=== PATIENT | female | born 1990 | race Caucasian/White ===

== ENCOUNTER 2017-04-13 15:01 | Emergency (ER) | payer BC ==
[2017-04-13] MEDS ORDERED: Ibuprofen TAB* 600 MG PO ONE (15:15)
[2017-04-13 15:16] VITALS: BP 135/91
--- NOTE | 2017-04-13 15:35 | UC ---
Throat Pain/Nasal Lucas HPI - HPI Summary HPI Summary: ONSET OF ST, PAIN WITH SWALLOWING, SWOLLEN GLANDS, CHILLS AND BODY ACHES YESTERDAY. THOUGHT IT WAS ALLERGIES SO TOOK BENADRYL WHICH WAS TRANSIENTLY HELPFUL BUT FEELS UNWELL AGAIN NOW. LAST DOSE IBUPROFEN 5 HOURS AGO. - History of Current Complaint Chief Complaint: UCRespiratory Stated Complaint: SWOLLEN THROAT, AND TONGUE Time Seen by Provider: 04/13/17 15:11 Hx Obtained From: Patient Hx Last Menstrual Period: IUD, Mirena Onset/Duration: Gradual Onset, Lasting Days, Still Present Severity: Moderate Pain Intensity: 7 Pain Scale Used: 0-10 Numeric Cough: None Associated Signs & Symptoms: Positive: Fever - Allergies/Home Medications Allergies/Adverse Reactions: Allergies Allergy/AdvReac Type Severity Reaction Status Date / Time Influenza Vaccine Recombinant Allergy See Comment Verified 08/05/16 10:01 [place] Allergy Vomiting Uncoded 04/13/17 15:17 FLU SHOT Allergy SPIKE IN Uncoded 04/29/14 07:04 TEMP, 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 Allergy SENSITIVE Uncoded 04/29/14 07:04 SKIN Long QT drug list AdvReac Unknown Uncoded 04/29/14 07:04 Reaction Details Home Medications: Home Medications Atenolol TAB* [Tenormin TAB* 25 MG] 1 tab PO BID 04/13/17 [History Confirmed ] Diphenhydramine HCl [Benadryl Allergy 25 MG TAB] 1 tab PO PRN 04/13/17 [History] Ibuprofen [Advil] 2 tab PO PRN 04/13/17 [History] PMH/Surg Hx/FS Hx/Imm Hx Endocrine History Of: Denies: Diabetes, Thyroid Disease Cardiovascular History Of: Reports: Cardiac Disorders - LONG QT SYNDROME Denies: Hypertension, Pacemaker/ICD Respiratory History Of: Denies: COPD, Asthma GI/ History Of: Denies: Ulcer Psychological History Of: Reports: Anxiety - Surgical History Surgical History: None - Family History Known Family History: Positive: Cardiac Disease - paternal grandfather, Other - depression - Social History Alcohol Use: Occasionally Substance Use Type: None Smoking Status (MU): Never Smoked Tobacco - Immunization History Most Recent Influenza Vaccination: Unknown Most Recent Tetanus Shot: Unknown Most Recent Pneumonia Vaccination: Unknown Review of Systems Constitutional: Fever, Chills, Fatigue ENT: Sore Throat Respiratory: Negative Cardiovascular: Negative Gastrointestinal: Negative Genitourinary: Negative All Other Systems Reviewed And Are Negative: Yes Physical Exam Triage Information Reviewed: Yes Appearance: Well-Nourished, Pain Distress - MOD, Other: - TEARFUL Vital Signs: Initial Vital Signs Temp 101.7 F 04/13/17 15:10 Pulse 100 04/13/17 15:10 Resp 20 04/13/17 15:10 BP 135/91 04/13/17 15:10 Pulse Ox 100 04/13/17 15:10 Vital Signs Reviewed: Yes Eyes: Positive: Conjunctiva Clear ENT: Positive: Hearing grossly normal, Pharyngeal erythema, TMs normal. Negative: Tonsillar swelling, Tonsillar exudate, Muffled/hoarse voice Neck: Positive: Supple, No Lymphadenopathy, Tenderness @ - REPORTS TENDER GLANDS Respiratory Exam: Normal Cardiovascular Exam: Normal Abdomen Description: Positive: Soft Musculoskeletal: Positive: No Edema Neurological: Positive: Alert Psychological: Positive: Other: - PT TEARFUL OUT OF PROPORTION TO SEVERITY OF EXAM FINDINGS Skin: Negative: rashes Diagnostics - Laboratory Diagnostic Studies Completed/Ordered: RAPID STREP NEGATIVE, RAPID FLU NEGATIVE. Throat Pain/Nasal Course/Dx - Differential Dx/Diagnosis Provider Diagnoses: ACUTE PHARYNGITIS Discharge - Discharge Plan Condition: Stable Disposition: HOME Patient Education Materials: Pharyngitis (ED) Referrals: Lissy Chaney NP [Primary Care Provider] - If Needed Additional Instructions: RAPID STREP NEGATIVE. RAPID FLU NEGATIVE. LABS DRAWN TO CHECK BLOOD COUNT AND MONO. WE WILL CALL YOU IF ANY ABNORMAL RESULTS. REST, HYDRATE, OTC MEDS FOR DISCOMFORT. OTC CHLORASEPTIC OR CEPACOL LOZENGES FOR SORE THROAT NEEDED
[2017-04-13 16:20] LABS: EBV Response YES
[2017-04-13 18:52] LABS: Hematocrit 37 % (35-47); Hemoglobin 12.6 g/dl (12.0-16.0); Mean Corpuscular HGB Conc 34 g/dl (31-36); Mean Corpuscular Hemoglobin 30 pg (27-31); Mean Corpuscular Volume 88 fL (80-97); Mean Platelet Volume 10 um3 (7.4-10.4); Red Blood Count 4.17 10^6/ul (4.0-5.4); Red Cell Distribution Width 13 % (10.5-15); White Blood Count 10.4 10^3/ul (3.5-10.8)
[2017-04-13 19:18] LABS: Mono Internal Control QC Line Present
[2017-04-15 14:46] LABS: EBV Capsid Ag IgG Ab Positive (Negative); EBV Capsid Ag IgM Ab Negative (Negative)
== END 2017-04-13 16:15 | disposition home or self-care (01) ==
LOC: UCEAST 15:01
DX: J02.9 Acute pharyngitis, unspecified (principal); R50.9 Fever, unspecified; Z88.7 Allergy status to serum and vaccine; Z91.018 Allergy to other foods; I45.81 Long QT syndrome; F41.9 Anxiety disorder, unspecified
CPT/HCPCS: 36415; 85025; 86308; 86664; 86665; 87502; 87651; 99212; A9270-GY; G0463